=== PATIENT | female | born 1940 | race African-American/Black ===

== ENCOUNTER 2017-09-17 07:29 | Emergency (ER) | payer OTHER, MEDICARE ==
[~2017-09-17] VITALS: Ht 167.6 cm; Wt 77.1 kg
[2017-09-17 07:30] VITALS: BP_SYST 149
[2017-09-17] MEDS ORDERED: KETOROLAC TROMETHAMINE 15 MG VIAL IM ONE (07:45)
[2017-09-17 09:20] VITALS: BP_SYST 152
== END 2017-09-17 09:20 | disposition home or self-care (01) ==
LOC: SED 07:29
DX: R51 Headache (principal); V47.5XXA Car driver injured in collision with fixed or stationary object in traffic accident, initial encounter; Y93.89 Activity, other specified; Y92.410 Unspecified street and highway as the place of occurrence of the external cause; Y99.8 Other external cause status
CPT/HCPCS: 96372; 99283; J1885